=== PATIENT | female | born 2000 | race Two or more races ===

== ENCOUNTER 2020-05-04 13:13 | Emergency (ER) | payer SELFPAY ==
[2020-05-04] MEDS ORDERED: CLINDAMYCIN 300 MG/D5W RTU 300 MG/50 ML RTUPB IV ONE (13:59)
[2020-05-04] MEDS ORDERED: NORMAL SALINE 1000 ML 1,000 ML IV ONE (13:59)
--- NOTE | 2020-05-04 13:59 | ER Document Report ---
ED Medical Screen (RME) - General Chief Complaint: Other Stated Complaint: LEFT 2ND,3RD DIGIT PAIN,SWELLING Time Seen by Provider: 05/04/20 13:55 Notes: Patient is a 20-year-old female who presents to the emergency department with a chief complaint of pain to her left distal second and third digit. Patient states that she noticed that there was pus near her finger 2-3 days ago. States that she poked her third finger with a needle and had some pus come out. Exam: Patient unable to flex her DIP joint on her second finger. I have greeted and performed a rapid initial assessment of this patient. A comprehensive ED assessment and evaluation of the patient, analysis of test results and completion of medical decision making process will be conducted by an additional ED providers. TRAVEL OUTSIDE OF THE [place] IN LAST 30 DAYS: No - Related Data Allergies/Adverse Reactions: No Known Allergies Allergy (Verified 05/04/20 13:55) Past Medical History Renal/ Medical History: Denies: Hx Peritoneal Dialysis Physical Exam - Vital signs Vitals: Temp Pulse Resp BP Pulse Ox 98.9 F 114 H 20 151/101 H 99 05/04/20 13:21 05/04/20 13:21 05/04/20 13:21 05/04/20 13:21 05/04/20 13:21 Course - Vital Signs Vital signs: Temp Pulse Resp BP Pulse Ox 98.9 F 114 H 20 151/101 H 99 05/04/20 13:21 05/04/20 13:21 05/04/20 13:21 05/04/20 13:21 05/04/20 13:21
[2020-05-04 14:18] LABS: ABSOLUTE BASOPHILS # (AUTO) 0.1 10^3/uL (0.0-0.2); ABSOLUTE EOSINOPHILS # (AUTO) 0.6 10^3/uL (0.0-0.6); ABSOLUTE LYMPHOCYTES (AUTO) 1.4 10^3/uL (0.5-4.7); ABSOLUTE MONOCYTES (AUTO) 0.7 10^3/uL (0.1-1.4); ABSOLUTE NEUT (AUTO) 6.4 10^3/uL (1.7-8.2); BASOPHILS % (AUTO) 0.7 % (0-2); EOSINOPHILS % (AUTO) 6.5 % (0-6); HEMATOCRIT 36.2 % (36.0-47.0); HEMOGLOBIN 11.9 g/dL (12.0-15.5); LYMPHOCYTES % (AUTO) 15.8 % (13-45); MEAN CORPUSCULAR HEMOGLOBIN 25.3 pg (27.0-33.4); MEAN CORPUSCULAR VOLUME 77 fl (80-97); MONOCYTES % (AUTO) 7.4 % (3-13); PLATELET COUNT 502 10^3/uL (150-450); RED BLOOD COUNT 4.72 10^6/uL (3.72-5.28); RED CELL DISTRIBUTION WIDTH 14.6 % (11.5-14.0); SEGMENTED NEUTROPHILS % (AUTO) 69.6 % (42-78); TOTAL CELLS COUNTED % (AUTO) 100 %; WHITE BLOOD COUNT 9.2 10^3/uL (4.0-10.5)
[2020-05-04 14:42] LABS: ANION GAP 6 (5-19); BLOOD UREA NITROGEN 11 mg/dL (7-20); CALCIUM 9.1 mg/dL (8.4-10.2); CARBON DIOXIDE 24 mmol/L (22-30); CHLORIDE 105 mmol/L (98-107); GLUCOSE 104 mg/dL (75-110); POTASSIUM 4.2 mmol/L (3.6-5.0)
--- NOTE | 2020-05-04 14:58 | RADIOLOGY REPORT (SQ) ---
EXAM DESCRIPTION: FINGER LEFT IMAGES COMPLETED DATE/TIME: 05/04/2020 2:37 pm REASON FOR STUDY: 2nd and 3rd digit pain; eval osteomyelitis COMPARISON: None. NUMBER OF VIEWS: Three views. TECHNIQUE: AP, lateral, and oblique images acquired of the left 2nd and 3rd fingers LIMITATIONS: None. FINDINGS: MINERALIZATION: Normal. BONES: No acute fracture or dislocation. No worrisome bone lesions. SOFT TISSUES: There is mild soft tissue swelling along the nail bed of the left 2nd (index) finger wi thout radiopaque foreign body or soft tissue gas. No underlying bony erosions of the distal phalanx worrisome for osteomyelitis. Mild diffuse soft tissue swelling 3rd (middle) finger without radiopaque foreign body or soft tissue gas. No aggressive demineralization worrisome for osteomyelitis OTHER: No other significant finding. IMPRESSION: Soft tissue swelling, 2nd and 3rd finger TECHNICAL DOCUMENTATION: JOB ID: [id number] 2010 [employer]- All Rights Reserved Reading location - IP/workstation name: [email or web address]
[2020-05-04] MEDS ORDERED: LIDOCAINE 1% INJ-PF (10 MG/ML) 30 ML SDV INJ ONE (16:31)
--- NOTE | 2020-05-04 16:45 | ER Document Report ---
Entered by ALEYDA AREVALO SCRIBE 05/04/20 5046 Acting as scribe for:JOSE PAULINO MD ED Hand/Wrist Injury - General Chief Complaint: Hand Swelling Stated Complaint: LEFT 2ND,3RD DIGIT PAIN,SWELLING Time Seen by Provider: 05/04/20 13:55 Mode of Arrival: Ambulatory Information source: Patient Notes: This 20 year old female patient presents to the emergency department today with complaints of left second finger pain. Patient complains of pain and swelling to the distal portion of her left index finger around the fingernail. Patient reports that she was able to express pus from the finger after poking it with a needle. TRAVEL OUTSIDE OF THE [place] IN LAST 30 DAYS: No - Related Data Allergies/Adverse Reactions: No Known Allergies Allergy (Verified 05/04/20 13:55) Past Medical History - General Information source: Patient - Social History Smoking Status: Never Smoker Cigarette use (# per day): No Chew tobacco use (# tins/day): No Frequency of alcohol use: None Drug Abuse: None Lives with: Family Family History: Reviewed & Not Pertinent Patient has homicidal ideation: No Skin Medical History: Reports Hx Eczema Surgical Hx: Negative Review of Systems - Review of Systems Constitutional: No symptoms reported EENT: No symptoms reported Cardiovascular: No symptoms reported Respiratory: No symptoms reported Gastrointestinal: No symptoms reported Genitourinary: No symptoms reported Female Genitourinary: No symptoms reported Musculoskeletal: No symptoms reported Skin: See HPI, Rash - eczema, Other - Paronychia Hematologic/Lymphatic: No symptoms reported Neurological/Psychological: No symptoms reported -: Yes All other systems reviewed and negative Physical Exam - Vital signs Vitals: Temp Pulse Resp BP Pulse Ox 98.9 F 114 H 20 151/101 H 99 05/04/20 13:21 05/04/20 13:21 05/04/20 13:21 05/04/20 13:21 05/04/20 13:21 - General General appearance: Appears well, Alert In distress: None - HEENT Head: Normocephalic, Atraumatic Eyes: Normal Pupils: PERRL - Respiratory Respiratory status: No respiratory distress - Cardiovascular Rhythm: Regular - Abdominal Inspection: Obese - Back Back: Normal - Extremities General upper extremity: Other - Left index finger has paronychia him which has begun to drain and flattens the skin. There is some serous purulent appearing drainage out of the ulnar edge of the paronychial region. There appears to be fluid under the nail with elevation of much of the nail bed. The volar tip of the finger is a little swollen, erythema, and very tender. It does not feel fluctuant. The third finger has some paronychial development along the radial side of the fingernail. It was punctured with a 25-gauge needle and pus came out. General lower extremity: Normal inspection - Neurological Neuro grossly intact: Yes - Psychological Associated symptoms: Normal affect, Normal mood - Skin Skin Temperature: Warm Skin Moisture: Dry Skin Color: Normal Skin irregularity: other - Severe eczematous changes without evidence of moisturizing lotion use. Course - Re-evaluation Re-evalutation: 05/04/20 18:53 PROCEDURE: The left hand and fingers were prepped with Shur-Clens. The left index finger was anesthetized with 6 mL's 1% lidocaine by a metacarpal block. The index finger was additionally anesthetized with about 1/4 mL of 1% lidocaine injected below the skin just distal to the dorsal DIP joint, the lidocaine was seen to infiltrate distally along the edges of the nail. The paronychial skin was incised allowing the pus to drain and exposing an elevated base of the fingernail. The nail was found to be attached only along the sides and the distal most aspect. The nail was then dissected free of its attachments, the entire area was irrigated with normal saline using 10 mL's, and a dressing consisting of bacitracin covered by Xeroform was applied. The left third finger had the paronychial tissue along the radial side of the nail incised with a #11 blade releasing a large amount of pus. This cavity was irrigated with 10 mL's of normal saline, then packed with quarter inch gauze. A sterile dressing was then placed. A culture of the purulent drainage from the finger wounds was collected and sent to the lab. I have advised the patient that the nail may not grow back, or it may not grow back correctly. She is recommended to follow-up with a local orthopedic doctor, but she does not have health insurance and does not think she would be able to do this. - Vital Signs Vital signs: Temp Pulse Resp BP Pulse Ox 97.7 F 103 H 16 156/107 H 100 05/04/20 19:14 05/04/20 19:14 05/04/20 19:14 05/04/20 19:14 05/04/20 19:14 - Laboratory Result Diagrams: 05/04/20 14:10 05/04/20 14:10 Laboratory results interpreted by me: 05/04/20 05/04/20 14:10 14:10 Hgb 11.9 L MCV 77 L MCH 25.3 L RDW 14.6 H Plt Count 502 H Eos % (Auto) 6.5 H Sodium 135.4 L Discharge - Discharge Clinical Impression: Paronychia of finger of left hand High blood pressure Qualifiers: Hypertension type: essential hypertension Qualified Code(s): I10 - Essential (primary) hypertension Eczema Qualifiers: Eczema type: unspecified Qualified Code(s): L30.9 - Dermatitis, unspecified Disposition: HOME, SELF-CARE Additional Instructions: Paronychia: You have an infection between the nail and the surrounding skin, called a paronychia. The germs infect the area after a minor skin injury, such as a hangnail. This infection is treated by releasing the pus. This is usually done by the skin from the nail. If the infection has spread underneath the nail, partial removal of the nail may be necessary. Hot-soak the area three or four times daily. Antibiotics are often given, but are not always necessary. Healing takes about a week. If pain or swelling becomes severe or if you develop fever or chills, call the doctor or return for re-examination. High Blood Pressure When your blood pressure was taken today it was elevated. Today's reading was 156/107. Pre-hypertension/Hypertension: The patient has been informed that they may have pre-hypertension or Hypertension based on a blood pressure reading in the emergency department. I recommend that the patient call the primary care leatha barrett on their discharge instructions or a physician of their choice this week to arrange follow up for further evaluation of possible pre- hypertension or Hypertension. Sometimes, stress or illness causes a temporary elevation of your blood pressure. We suggest that you get your blood pressure measured three more times during the next few days to see if this is more than a temporary abnormality. If your blood pressure is greater than 150/90 on each occasion, you must have treatment. Some simple things you can do to help are: If you have blood pressure medicine but aren't using it regularly, start taking it again. Get some aerobic exercise for at least 20 minutes on a daily basis. (See your doctor before beginning a new exercise program.) Eat a low-fat diet. Lose excess weight. Avoid salty foods and avoid adding salt to any of the foods you eat. Avoid diet pills, decongestants, "energizing" herbs, and other medicines that elevate blood pressure. If left untreated, hypertension greatly enhances your risk for developing heart disease and strokes. Please don't ignore this problem. Take medications as prescribed. Elevate your hand for the next 2 to 3 days. Begin soaking your hand in warm water on Saturday. Use the bacitracin ointment and a Band-Aid over the index finger to protect the nailbed. Follow-up with an orthopedic surgeon if any problems with the nail growing out. If you use moisturizing lotion on all your eczematous skin, particularly your fingernails, it will prevent future infections like these. Your blood pressure was elevated today. You indicate you do have a family history of high blood pressure. You should check your pressure daily for the next few days, and if it remains elevated, then follow-up with a local medical doctor to manage your blood pressure. RETURN TO THE EMERGENCY ROOM IF ANY NEW OR WORSENING SYMPTOMS. Prescriptions: Cephalexin Monohydrate [Keflex 500 mg Capsule] 500 mg PO QID #28 capsule Hydrocodone/Acetaminophen [[place] 5-325 mg Tablet] 1 tab PO ASDIR PRN #12 tablet PRN Reason: For Pain Sulfamethoxazole/Trimethoprim [Septra-Ds 800-160 mg Tablet] 2 tab PO BID #28 tablet Forms: Return to Work I personally performed the services described in the documentation, reviewed and edited the documentation which was dictated to the scribe in my presence, and it accurately records my words and actions.
[2020-05-04] MEDS ORDERED: SULFAMETHOXAZOLE/TRIMETHOPRIM 800-160 MG TABLET PO ONE (18:54)
[2020-05-04] MEDS ORDERED: CEPHALEXIN 500 MG CAPSULE PO ONE (18:55)
[2020-05-04 19:15] VITALS: BP 156/107
== END 2020-05-04 19:35 | disposition home or self-care (01) ==
LOC: ER 13:13
DX: L03.012 Cellulitis of left finger (principal); L30.9 Dermatitis, unspecified; M79.645 Pain in left finger(s); I10 Essential (primary) hypertension
CPT/HCPCS: 99283; 96365; 96366; 36415; 87040; 87070; 87205; 83605; 85025; 87077; 80048; 73140; 10060; J3490 ×2; J7030

== ENCOUNTER 2020-10-03 02:07 | Emergency (ER) | payer SELFPAY ==
--- NOTE | 2020-10-03 08:15 | ER Document Report ---
Entered by BASILIO SANTOS SCRIBE 10/03/20 0721 Acting as scribe for:ANT YOU MD ED General - General Chief Complaint: Flu Symptoms Stated Complaint: HEADACHE MUSCLE PAIN CONGESTION Time Seen by Provider: 10/03/20 06:45 Information source: Patient Notes: This 20 year old female patient presents to the emergency department today with complaints of a sore throat, headaches, and nasal congestion for the past week. Patient reports history of anxiety, asthma, and eczema. Patient states she is on trazadone and wellbutrin. Denies any cough, chest pain, or N/V/D. TRAVEL OUTSIDE OF THE [place] IN LAST 30 DAYS: No - Related Data Allergies/Adverse Reactions: No Known Allergies Allergy (Verified 10/03/20 06:39) Home Medications: trazadone. wellbutrin Past Medical History - General Information source: Patient - Social History Smoking Status: Never Smoker Cigarette use (# per day): No Chew tobacco use (# tins/day): No Frequency of alcohol use: None Drug Abuse: None Lives with: Other - boyfriend Family History: Reviewed & Not Pertinent Patient has homicidal ideation: No Pulmonary Medical History: Reports: Hx Asthma - childhood Renal/ Medical History: Denies: Hx Peritoneal Dialysis Skin Medical History: Reports Hx Eczema Psychiatric Medical History: Reports: Hx Anxiety Review of Systems - Review of Systems Constitutional: No symptoms reported EENT: See HPI, Nose congestion, Throat pain Cardiovascular: See HPI. denies: Chest pain Respiratory: See HPI. denies: Cough Gastrointestinal: See HPI. denies: Diarrhea, Nausea, Vomiting Genitourinary: No symptoms reported Female Genitourinary: No symptoms reported Musculoskeletal: No symptoms reported Skin: No symptoms reported Hematologic/Lymphatic: No symptoms reported Neurological/Psychological: See HPI, Headaches -: Yes All other systems reviewed and negative Physical Exam - Vital signs Vitals: Temp 97.5 F 10/03/20 02:14 - General General appearance: Alert In distress: Mild - HEENT Head: Normocephalic, Atraumatic Eyes: Normal Pupils: PERRL Pharynx: Normal. No: Erythema Neck: Normal. No: Lymphadenopathy - Respiratory Respiratory status: No respiratory distress Chest status: Nontender Breath sounds: Normal Chest palpation: Normal - Cardiovascular Rhythm: Regular Heart sounds: Normal auscultation Murmur: No - Abdominal Inspection: Obese Distension: No distension Bowel sounds: Normal Tenderness: Nontender - Soft - Extremities General upper extremity: Normal inspection, Normal ROM General lower extremity: Normal inspection, Normal ROM. No: Edema - Neurological Neuro grossly intact: Yes Cognition: Normal Orientation: AAOx4 Jesus Coma Scale Eye Opening: Spontaneous Jesus Coma Scale Verbal: Oriented [place] Coma Scale Motor: Obeys Commands [place] Coma Scale Total: 15 Speech: Normal Sensory: Normal - Psychological Associated symptoms: Normal affect, Normal mood - Skin Skin Temperature: Warm Skin Moisture: Dry Skin Color: Normal Irregularity with: Scaling Course - Re-evaluation Re-evalutation: 10/03/20 08:10 in no distress. 10/03/20 08:11 patient is covid tested today. - Vital Signs Vital signs: Temp Pulse Resp BP Pulse Ox 97.6 F 84 22 H 124/80 100 10/03/20 03:52 10/03/20 03:52 10/03/20 03:52 10/03/20 03:52 10/03/20 03:52 10/03/20 08:10 vital signs are stable. - Laboratory Laboratory results interpreted by me: strep screen is negative. Discharge - Discharge Clinical Impression: Upper respiratory infection, Pharyngitis Condition: Stable Disposition: HOME, SELF-CARE Instructions: COVID-19 Guidance for Persons Under Investigation, Upper Respiratory Illness ([facility]) Prescriptions: Ibuprofen/Pseudoephedrine HCl [Advil Cold & Sinus Caplet] 1 each PO TID PRN #21 tablet PRN Reason: Amoxicillin 1 tab PO TID #30 tab I personally performed the services described in the documentation, reviewed and edited the documentation which was dictated to the scribe in my presence, and it accurately records my words and actions.
[2020-10-03 08:45] VITALS: BP 132/79
== END 2020-10-03 08:45 | disposition home or self-care (01) ==
LOC: ER 02:07
DX: J06.9 Acute upper respiratory infection, unspecified (principal); R51.9 Headache, unspecified; J02.9 Acute pharyngitis, unspecified; R09.81 Nasal congestion; F41.9 Anxiety disorder, unspecified; Z79.899 Other long term (current) drug therapy; Z20.828 Contact with and (suspected) exposure to other viral communicable diseases
CPT/HCPCS: 99283; 87070; 87880; 87635; C9803